=== PATIENT | female | born 1985 | race Two or more races ===

== ENCOUNTER 2016-04-18 01:22 | Emergency (ER) | payer OTHER, SELFPAY ==
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
== END 2016-04-18 01:31 | disposition home or self-care (01) ==
LOC: ER 01:22
DX: S00.03XA Contusion of scalp, initial encounter (principal); V89.9XXA Person injured in unspecified vehicle accident, initial encounter; Y92.410 Unspecified street and highway as the place of occurrence of the external cause